=== PATIENT | male | born 1970 | race Caucasian/White ===

== ENCOUNTER 2017-11-12 11:41 | Emergency (ER) | payer BC, OTHER ==
[~2017-11-12] VITALS: Ht 175.3 cm; Wt 91.5 kg
[~2017-11-12 11:41] MED LIST: ACHD5005 PO; ASPI325T32 PO; ATEN25TA PO; CIPR-17 PO; NAPR-243 PO; OXYC-12 PO; TRM50T PO
[2017-11-12] MEDS ORDERED: TETRACAINE 0.5% OPHTH SOLN 4 ML BTL (SINGLE DOSE ONLY) OP ONE (12:15)
[2017-11-12 12:30] LABS: BASOPHILS % (AUTO) 1 % (0-10); EOSINOPHILS # (AUTO) 0.2 10^3/uL (0.0-0.3); EOSINOPHILS % (AUTO) 3 % (0-10); HEMATOCRIT 49 % (40-54); HEMOGLOBIN 17.4 G/DL (13.3-17.7); LYMPHOCYTES # (AUTO) 2.4 X 10^3 (1.0-4.0); LYMPHOCYTES % (AUTO) 33 % (12-44); MEAN CORPUSCULAR HEMOGLOBIN 31 PG (25-34); MEAN CORPUSCULAR HGB CONC 36 G/DL (32-36); MEAN CORPUSCULAR VOLUME 88 FL (80-99); MEAN PLATELET VOLUME 11.1 FL (7.4-10.4); MONOCYTES % (AUTO) 13 % (0-12); NEUTROPHILS # (AUTO) 3.7 X 10^3 (1.8-7.8); NEUTROPHILS % (AUTO) 51 % (42-75); PLATELET COUNT 268 10^3/uL (130-400); RED BLOOD COUNT 5.55 10^6/uL (4.35-5.85); RED CELL DISTRIBUTION WIDTH 13.2 % (10.0-14.5); WHITE BLOOD COUNT 7.4 10^3/uL (4.3-11.0)
[2017-11-12] MEDS ORDERED: NS 250 ML (IVPB) BAG IV ONE (12:30)
[2017-11-12] MEDS ORDERED: fentaNYL INJECTION 100 MCG/2 ML AMP IVP ONE (12:30)
[2017-11-12] MEDS ORDERED: IOHEXOL 350 MG/ML 100 ML (OMNIPAQUE 350) VIAL IV ONE (12:30)
[2017-11-12] MEDS ORDERED: CATHETER FLUSH 10 ML SYR IV PRN (12:30)
--- NOTE | 2017-11-12 12:46 | ED Headache ---
General Chief Complaint: Head/Cervical Problems Stated Complaint: HEALY--RT EYE SWELLING Nursing Triage Note: HEALY since Aug 27 when DX with scarcomia. tylenol keeps it managable Nursing Sepsis Screen: No Definite Risk History of Present Illness Date Seen by Provider: Nov 12, 2017 Time Seen by Provider: 12:00 Initial Comments Patient presents to the ER with complaints of right eye photophobia, blurred vision, headache, and right sided head swelling since September. The right eye pain only began today. Patient has been seen by primary care and was referred to dermatology for freckles around the eye and "freckle on the retina". He has not yet seen ophthalmology or optometry. Patient reports starting new medications in September for PTSD, patient reports taking Pristiq. Timing/Duration: constant Location: temporal Prior Headaches/Recent Trauma: chronic headaches Modifying Factors: improves with rest Associated Symptoms: denies symptoms Allergies and Home Medications Allergies Coded Allergies: Codeine (Unverified Allergy, Severe, 05/06/10) Home Medications Aspirin 325 Mg Tabec, 325 MG PO DAILY, (Reported) Hydrocodone Bit/Acetaminophen 1 Each Tablet, 1-2 EACH PO Q6H PRN for PAIN Prescribed by: EDWARD MARIE on 12/17/13 9784 Patient Home Medication List Home Medication List Reviewed: Yes Constitutional: other (headache) Eyes: Blurred Vision, Pain, Photophobia Ears, Nose, Mouth, Throat: no symptoms reported, see HPI Respiratory: no symptoms reported, see HPI Cardiovascular: no symptoms reported, see HPI Genitourinary: no symptoms reported, see HPI Musculoskeletal: no symptoms reported, see HPI Skin: no symptoms reported, see HPI Psychiatric/Neurological: Headache Past Gwzqexq-Wpdreo-Xaoqng Hx Patient Social History Alcohol Use: Denies Use Recreational Drug Use: No (SMOKES 1/2 PPD X18 YRS) Smoking Status: Current Everyday Smoker 2nd Hand Smoke Exposure: No Recent Foreign Travel: No Contact w/Someone Who Travel: No Recent Infectious Disease Expo: No Recent Hopitalizations: Yes Physical Abuse: No Sexual Abuse: No Mistreated: No Fear: No Immunizations Up To Date Tetanus Booster (TDap): Less than 5yrs Date of Influenza Vaccine: Jul 17, 2011 Surgeries History of Surgeries: Yes Surgeries: Gallbladder, Orthopedic, Tonsillectomy, Vasectomy Respiratory History of Respiratory Disorde: No Respiratory Disorders: Sleep Apnea Cardiovascular History of Cardiac Disorders: Yes Cardiac Disorders: Heart Attack Neurological History of Neurological Disord: No (scarcomia) Reproductive System Hx Reproductive Disorders: No Sexually Transmitted Disease: No Genitourinary History of Genitourinary Disor: No Gastrointestinal History of Gastrointestinal Di: No Musculoskeletal History of Musculoskeletal Dis: Yes (r knee/surg) Endocrine History of Endocrine Disorders: No HEENT History of HEENT Disorders: No Cancer History of Cancer: No Psychosocial History of Psychiatric Problem: No Suicide Risk Score: 0 Blood Transfusions History of Blood Disorders: No Physical Exam Vital Signs Vital Signs - First Documented 11/12/17 11:54 Temp 98.4 Pulse 83 Resp 18 B/P (MAP) 139/75 (96) Pulse Ox 94 Capillary Refill : Less Than 3 Seconds General Appearance: WD/WN, no apparent distress HEENT: PERRL/EOMI, normal ENT inspection, other (both eyes are without erythema , there is some ptosis of the right upper eyelid. Very minimal. No conjunctivitis or scleral injection. No hyphema. Intraocular pressure measured with Tiger-Pen and is 16 mmHg bilaterally.) Neck: non-tender, full range of motion Respiratory: chest non-tender, lungs clear Gastrointestinal: normal bowel sounds, non tender Extremities: normal range of motion, non-tender Psychiatric: alert, oriented x 3 Crainal Nerves: normal hearing, normal speech, PERRL Skin: normal color, warm/dry Progress/Results/Core Measures Results/Orders Lab Results Laboratory Tests Test 11/12/17 12:25 Range/Units White Blood Count 7.4 4.3-11.0 10^3/uL Red Blood Count 5.55 4.35-5.85 10^6/uL Hemoglobin 17.4 13.3-17.7 G/DL Hematocrit 49 40-54 % Mean Corpuscular Volume 88 80-99 FL Mean Corpuscular Hemoglobin 31 25-34 PG Mean Corpuscular Hemoglobin Concent 36 32-36 G/DL Red Cell Distribution Width 13.2 10.0-14.5 % Platelet Count 268 130-400 10^3/uL Mean Platelet Volume 11.1 H 7.4-10.4 FL Neutrophils (%) (Auto) 51 42-75 % Lymphocytes (%) (Auto) 33 12-44 % Monocytes (%) (Auto) 13 H 0-12 % Eosinophils (%) (Auto) 3 0-10 % Basophils (%) (Auto) 1 0-10 % Neutrophils # (Auto) 3.7 1.8-7.8 X 10^3 Lymphocytes # (Auto) 2.4 1.0-4.0 X 10^3 Monocytes # (Auto) 1.0 0.0-1.0 X 10^3 Eosinophils # (Auto) 0.2 0.0-0.3 10^3/uL Basophils # (Auto) 0.0 0.0-0.1 10^3/uL Erythrocyte Sedimentation Rate 1 0-15 MM/HR Sodium Level 140 135-145 MMOL/L Potassium Level 3.9 3.6-5.0 MMOL/L Chloride Level 106 98-107 MMOL/L Carbon Dioxide Level 28 21-32 MMOL/L Anion Gap 6 5-14 MMOL/L Blood Urea Nitrogen 12 7-18 MG/DL Creatinine 0.93 0.60-1.30 MG/DL Estimat Glomerular Filtration Rate > 60 BUN/Creatinine Ratio 13 Glucose Level 66 L 70-105 MG/DL Calcium Level 10.3 H 8.5-10.1 MG/DL Total Bilirubin 0.7 0.1-1.0 MG/DL Aspartate Amino Transf (AST/SGOT) 21 5-34 U/L Alanine Aminotransferase (ALT/SGPT) 29 0-55 U/L Alkaline Phosphatase 71 40-136 U/L Total Protein 7.7 6.4-8.2 GM/DL Albumin 4.8 H 3.2-4.5 GM/DL My Orders Orders - KIRA MUIR STAFFING EXECUTIVE Tetracaine 0.5% Ophth Erica Sdv (Tetracai (11/12/17 12:15) Ct Head W Wo (11/12/17 12:11) Cbc With Automated Diff (11/12/17 12:11) Comprehensive Metabolic Panel (11/12/17 12:11) Saline Lock/Iv-Start (11/12/17 12:11) Fentanyl Injection (Sublimaze Injection (11/12/17 12:30) Iohexol Injection (Omnipaque 350 Mg/Ml 1 (11/12/17 12:30) Sodium Chloride Flush (Catheter Flush Sy (11/12/17 12:30) Ns (Ivpb) (Sodium Chloride 0.9%) (11/12/17 12:30) Pharmacy Communication (Pharmacy Communi (11/12/17 12:28) Erythrocyte Sedimentation Rate (11/12/17 13:06) Medications Given in ED Current Medications Medications Dose Ordered Sig/Ty Route Start Time Stop Time Status Last Admin Dose Admin Fentanyl Citrate 50 mcg ONCE ONCE IVP 11/12/17 12:30 11/12/17 12:31 DC 11/12/17 12:29 50 MCG Iohexol 100 ml ONCE ONCE IV 11/12/17 12:30 11/12/17 12:31 DC 11/12/17 13:14 80 ML Sodium Chloride 10 ml NEEDED PRN IV 11/12/17 12:30 11/12/17 13:14 10 ML Sodium Chloride 250 ml ONCE ONCE IV 11/12/17 12:30 11/12/17 12:31 DC 11/12/17 13:14 80 ML Tetracaine HCl 1 ml ONCE ONCE OP 11/12/17 12:15 11/12/17 12:16 DC 11/12/17 12:25 1 ML Vital Signs/I&O Vital Sign - Last 12Hours 11/12/17 11:54 Temp 98.4 Pulse 83 Resp 18 B/P (MAP) 139/75 (96) Pulse Ox 94 Blood Pressure Mean: 96 Progress Note : Time: 12:45 Progress Note Intraocular pressure was tested with a Tigre-Pen, the results were 16 mmHg bilaterally. Departure Communication (Admissions) Progress Notes A CT scan of the head both with and without contrast was done. No evidence of mass. I will refer the patient to Dr. Rodriguez clinic for further workup of the right eye blurred vision and discomfort. His headaches started when he started the new medication Pristiq. This is listed as a common side effect of that medication. However his right eye does have some ptosis and photophobia which should not be associated with that. He states that his primary care doctor has scheduled him for an outpatient MRI of the brain and he should continue with this plan. I did make an appointment on the patient's behalf with Dr. Martell, Optometry Wednesday 11 AM Impression Impression: Primary Impression: Acute right eye pain Additional Impression: Headache Disposition: ADMITTED INPATIENT Condition: Stable (admission she comes in she is like this) Departure-Patient Inst. Decision time for Depature: 13:42 Referrals: HERMINIA BORJA MD (PCP/Family) Primary Care Physician YAZAN OLRENZO OD Patient Instructions: Headache, Adult (DC) Add. Discharge Instructions: 1. Return to ER for any concerns 2. Follow-up with your doctor to obtain the MRI of the brain as scheduled 3. Follow-up with optometry doctor Jasbir at the [facility] just across the [address] from [facility]. You're to see him Wednesday 11 AM. All discharge instructions reviewed with patient and/or family. Voiced understanding. Scripts Butalb/Acetaminophen/Caffeine (Qzrsuv-Vkubymqp-Eazs 50-300-40) 1 Each Capsule 1 EACH PO Q4H for Headache, #10 CAP Prov: KIRA MUIR APRN 11/12/17 Copy Copies To 1: YAZAN LORENZO OD Copies To 2: EDILMA MUNSON PETER J APRN Nov 12, 2017 12:46
[2017-11-12 12:50] LABS: ALANINE AMINOTRANSFERASE 29 U/L (0-55); ALBUMIN 4.8 GM/DL (3.2-4.5); ALKALINE PHOSPHATASE 71 U/L (40-136); BILIRUBIN,TOTAL 0.7 MG/DL (0.1-1.0); BUN/CREATININE RATIO 13; CALCIUM 10.3 MG/DL (8.5-10.1); CARBON DIOXIDE 28 MMOL/L (21-32); CHLORIDE 106 MMOL/L (98-107); CREATININE SERUM 0.93 MG/DL (0.60-1.30); GFR ESTIMATED > 60; GLUCOSE 66 MG/DL (70-105); POTASSIUM 3.9 MMOL/L (3.6-5.0); SODIUM 140 MMOL/L (135-145); TOTAL PROTEIN 7.7 GM/DL (6.4-8.2)
--- NOTE | 2017-11-12 13:22 | Diagnostic Imaging Report ---
PROCEDURE: CT head with and without contrast. TECHNIQUE: Multiple contiguous axial images were obtained through the brain before and after the administration of intravenous contrast. INDICATION: Headache since August, right eye sensitivity and blurred vision. COMPARISON: None. FINDINGS: The ventricles and cortical sulci appear age-appropriate. No acute intracranial hemorrhage is seen. There is no midline shift or mass effect. There is no CT evidence of acute territorial ischemia. Small foci of subcortical hypoattenuation may represent chronic microvascular disease. No associated enhancement is seen, and no other areas of abnormal enhancement are appreciated. The calvarium appears intact. The visualized paranasal sinuses are clear. IMPRESSION: 1. No acute intracranial hemorrhage. No CT evidence of acute territorial ischemia or focal enhancing mass. 2. Small focal areas of subcortical hypoattenuation, may represent mild chronic microvascular disease. Dictated by: Dictated on workstation # [id number]
[2017-11-12 14:00] VITALS: BP 136/71
[2017-11-12] MEDS ORDERED: BUTA1CAP41 PO (14:03)
--- OUTSIDE RECORDS SUMMARY | 2017-11-14 04:26 | XMS REPORT | Continuity of Care Document ---
Author Author [facility] Organization [facility] Address Unknown Phone Unavailable Allergies Active Description Code Type Severity Reaction Onset Reported/Identified Relationship to Patient Clinical Status Yes codeine Drug Allergy N/A N/A 04/26/2014 Medications There is no data. Problems Date Dx Coded Attending Type Code Diagnosis Diagnosed By 02/19/2014 EDILMA MUNSON DO V05.3 HEP B (ADULT) DX 02/19/2014 EDILMA MUNSON DO K V74.1 TB SCREENING 02/19/2014 EDILMA MUNSON DO K V05.3 HEP B (ADULT) DX 02/19/2014 NAN MUNSON DOA K V74.1 TB SCREENING 02/19/2014 EDILMA MUNSON DO K V05.3 HEP B (ADULT) DX 02/19/2014 NAN MUNSON DOA K V74.1 TB SCREENING 02/19/2014 NAN MUNSON DOA K V05.3 HEP B (ADULT) DX 02/19/2014 NAN MUNSON DOA K V74.1 TB SCREENING 04/26/2014 EDILMA MUNSON DO 599.72 MICROSCOPIC HEMATURIA 04/26/2014 EDILMA MUNSON DO K 786.09 snoring 04/26/2014 NAN MUNSON DOA K V70.5 visit for: pre-employment physical 04/26/2014 EDILMA MUNSON DO 599.72 MICROSCOPIC HEMATURIA 04/26/2014 EDILMA MUNSON DO K 786.09 snoring 04/26/2014 NAN MUNSON DOA K V70.5 visit for: pre-employment physical Procedures Code [place] [address] TB TEST INTRADERMAL 02/19/2014 20641 SLEEP STUDY (HOME) 04/27/2014 Results There is no data. Encounters ACCT No. Visit Date/Time Discharge Status Pt. Type Provider Facility Loc./Unit Complaint [id number] 12/27/2013 10:37:00 12/27/2013 23:59:59 CLS Outpatient [id number] 12/17/2013 16:39:00 12/17/2013 19:00:00 DIS Emergency [id number] 09/05/2014 14:14:00 09/05/2014 23:59:59 CLS Outpatient EDILMA MUNSON DO [id number] 04/26/2014 14:26:00 04/26/2014 23:59:59 CLS Outpatient EDILMA MUNSON DO [id number] 03/23/2014 08:02:00 03/23/2014 23:59:[address] [facility] Outpatient EDILMA MUNSON DO [id number] 02/19/2014 08:26:00 02/19/2014 23:59:[address] [facility] Outpatient EDILMA MUNSON DO
== END 2017-11-12 14:05 | disposition other institution (70) ==
LOC: EDUNIT# 11:41 → ER 11:44
DX: H57.11 Ocular pain, right eye (principal); R51 Headache; F03.90 Unspecified dementia, unspecified severity, without behavioral disturbance, psychotic disturbance, mood disturbance, and anxiety; G47.30 Sleep apnea, unspecified; I25.2 Old myocardial infarction; F17.210 Nicotine dependence, cigarettes, uncomplicated; Z90.89 Acquired absence of other organs; Z98.52 Vasectomy status; Z88.5 Allergy status to narcotic agent; Z79.82 Long term (current) use of aspirin
CPT/HCPCS: 36415; 70470; 80053; 85025; 85652

== ENCOUNTER 2019-07-24 05:39 | Outpatient (CLI) | payer BC ==
[~2019-07-24] VITALS: Ht 175 cm; Wt 95.9 kg
[~2019-07-24 05:39] MED LIST changes: +BUTA1CAP41 PO
[2019-07-24] MEDS ORDERED: BREX1TAB PO (11:46)
[2019-07-24] MEDS ORDERED: PARO30TA74 PO (11:46)
== END 2019-07-24 12:20 | disposition home or self-care (01) ==
LOC: PREOP 05:39
PROVIDERS: ATTEND Surgery
DX: Z01.818 Encounter for other preprocedural examination (principal)

== ENCOUNTER → 2019-09-26 | Outpatient (CLI) | payer BC, OTHER ==
[~2019-09-26] VITALS: Ht 175 cm; Wt 102.0 kg
[~2019-09-26] MED LIST changes: +BREX1TAB PO; +CATHETER FLUSH 10 ML SYR IV PRN; +PARO30TA74 PO; +REGADENOSON 0.4 MG/5 ML SYR (LEXISCAN) IV ONE
--- NOTE | 2019-09-27 11:02 | STRESS TEST ---
DATE OF SERVICE: 09/26/2019 RESTING AND POST REGADENOSON TECHNETIUM-99M TETROFOSMIN SPECT CT IMAGING ORDERING PHYSICIAN: Dr. Middleton. OTHER PHYSICIAN: Saurav Cain APRN CLINICAL DIAGNOSES: Chest discomfort, shortness of breath. Baseline images were carried out after injection of 10.2 mCi of technetium-99m Tetrofosmin. This was followed by 0.4 mg regadenoson and 30.4 mCi of technetium-99m Tetrofosmin for stress imaging. The electrocardiogram showed sinus rhythm at baseline and did not change significantly. He tolerated the procedure well. Review of images at rest and following stress is suggestive of a small amount of inferior ischemia. Gated images show normal global left ventricular systolic function with normal regional wall motion. Left ventricular ejection fraction is calculated to be 61%. Left ventricular end diastolic volume is 83 mL. TID is absent (1.01). CONCLUSIONS: 1. This study is suggestive of a small amount of inferior ischemia. 2. Normal regional wall motion. 3. Normal global left ventricular systolic function with a calculated ejection fraction of 61%. Job ID: [id number] DocumentID: [id number] Dictated Date: 09/27/2019 08:44:58 [place] Date: 09/27/2019 11:02:14 Dictated By: MARLON MIDDLETON MD, MA, FACP, FACC, MTDD
== END ==
LOC: CARD 09:44
PROVIDERS: ATTEND Internal Medicine Cardiovascular Disease
DX: R07.9 Chest pain, unspecified (principal); R06.02 Shortness of breath; E78.5 Hyperlipidemia, unspecified
CPT/HCPCS: 78452; 93017

== ENCOUNTER 2019-10-13 06:42 | Day surgery (SDC) | payer BC ==
[~2019-10-13] VITALS: Ht 175 cm; Wt 101.0 kg
[2019-10-13] VITALS (9 sets, daily range): BP systolic 99–120; BP diastolic 53–72
[~2019-10-13 06:42] MED LIST changes: -CATHETER FLUSH 10 ML SYR IV PRN; -REGADENOSON 0.4 MG/5 ML SYR (LEXISCAN) IV ONE
[2019-10-13] MEDS ORDERED: NS IV 1000 ML 1,000 ML IV SCH ×2 (06:45→09:06)
[2019-10-13] MEDS ORDERED: LIDOCAINE 1% INJ 20 ML 20 ML VIAL ONE ×2 (06:51→08:40)
[2019-10-13] MEDS ORDERED: HEParin (CATH LAB) 2,000 ML IV ONE (06:51)
[2019-10-13] MEDS ORDERED: NS IV 1000 ML 1,000 ML ONE (06:51)
[2019-10-13 07:16] LABS: HEMOGLOBIN 16.5 G/DL (13.3-17.7); MEAN PLATELET VOLUME 11.2 FL (7.4-10.4); RED CELL DISTRIBUTION WIDTH 13.2 % (10.0-14.5); WHITE BLOOD COUNT 6.4 10^3/uL (4.3-11.0)
[2019-10-13 07:33] LABS: PROTHROMBIN TIME PATIENT 13.3 SEC (12.2-14.7)
[2019-10-13 07:41] LABS: ALANINE AMINOTRANSFERASE 30 U/L (0-55); ALBUMIN 4.5 GM/DL (3.2-4.5); ALKALINE PHOSPHATASE 56 U/L (40-136); BILIRUBIN,TOTAL 0.7 MG/DL (0.1-1.0); BUN/CREATININE RATIO 11; CALCIUM 9.7 MG/DL (8.5-10.1); CARBON DIOXIDE 21 MMOL/L (21-32); CHLORIDE 109 MMOL/L (98-107); CHOLESTEROL 151 MG/DL (< 200); CREATININE SERUM 0.98 MG/DL (0.60-1.30); GFR ESTIMATED > 60; GLUCOSE 110 MG/DL (70-105); HDL CHOLESTEROL 33 MG/DL (40-60); POTASSIUM 4.3 MMOL/L (3.6-5.0); SODIUM 140 MMOL/L (135-145); TOTAL PROTEIN 7.4 GM/DL (6.4-8.2); TRIGLYCERIDES 150 MG/DL (<150); VLDL CHOLESTEROL 30 MG/DL (5-40)
[2019-10-13] MEDS ORDERED: IBUP-2473 PO (07:42)
[2019-10-13] MEDS ORDERED: MTP25TSR PO (07:42)
[2019-10-13] MEDS ORDERED: ACET-2267 PO (07:42)
[2019-10-13] MEDS ORDERED: ATOR20TA66 PO (07:42)
[2019-10-13] MEDS ORDERED: TRAZ-190 PO (07:42)
[2019-10-13] MEDS ORDERED: HYDR50CA3 PO (07:42)
--- NOTE | 2019-10-13 07:44 | NUR ---
SPOKE WITH THE PT (HE DID NOT HAVE MEDS) WENT THRU THE MEDICATION LIST PROVIDED BY THE OFFICE THAT WAS ATTACHED TO THE TRIMMER LOADER CHART, WELL CALL [facility] TO COMPLETE THE MED REC. THE FOLLOWING ARE FILL DATES FROM [facility]: 06-06-2019 TRAZODONE 100MG #30/PRN 06-30-2019 HYDROXYZINE 50MG CAPS #60/PRN 09-07-2019 ATORVASTATIN 20MH #30/30DS 09-23-2019 PAROXETINE 30MG #30/30DS 09-23-2019 REXULTI 1MG #90/90DS (RECEIVED FROM PALS PROGRAM) 10-05-2019 METOPROLOL SUCC 25MG #30/30DS OTC MEDS: TYLENOL IBUPROFEN ON THE MEDICATION LIST FROM THE OFFICE ASPIRIN 81MG IS LISTED, HOWEVER I LEFT IT OFF THE MED REC BC THE PT SAYS HE HASNT TAKEN IT IN A COUPLE MONTHS.
[2019-10-13] MEDS ORDERED: MIDAZOLAM 5 MG/5 ML (VERSED) VIAL ONE (08:26)
[2019-10-13] MEDS ORDERED: fentaNYL INJECTION 100 MCG/2 ML AMP ONE (08:26)
--- NOTE | 2019-10-13 09:06 | Cardiac Procedure Note-CS/ASA ---
Pre-Procedure Note Pre-Op Procedure Note H&P Reviewed The H&P was reviewed, patient examined and no changes noted. Date H&P Reviewed: Oct 13, 2019 Time H&P Reviewed: 08:35 Conscious Sedation Pre-Proced Time 08:35 ASA Score 3 For ASA 3 and 4: Consider anesthesia and medical clearance. Also, for patients with a history of failed moderate sedation consider anesthesia. Airway Lungs Heart ASA score ASA 1: a normal healthy patient ASA 2: a patient with a mild systemic disease (mid diabetes, controlled hypertension, obesity ASA 3: a patient with a severe systemic disease that limits activity (angina, COPD, prior Myocardial infarction) ASA 4: a patient with an incapacitating disease that is a constant threat to life (CHF, renal failure) ASA 5: a moribund patient not expected to survive 24 hrs. (ruptured aneurysm) ASA 6: a declared brain- patient whose organs are being harvested. For emergent operations, add the letter E after the classification Mallampati Classification Grade 2 Sedation Plan Analgesia, Amnesia, Plan communicated to team members, Discussed options with patient/fam, Discussed risks with patient/fam The patient is an appropriate candidate to undergo the planned procedure, sedation, and anesthesia. The patient immediately re-assessed prior to indication. MARLON CRESPO MD FACP FAC CCDS Oct 13, 2019 09:06
--- NOTE | 2019-10-13 09:10 | Discharge Inst-Post CATH ---
Discharge Inst-CATH/EP Post Cardiac Cath/EP D/C Inst Follow Up/Plan F/u with Dr Middleton in 2 weeks ACTIVITY * Go Home directly and rest. * Limit activity of the leg (or wrist if it was used) for 7 days including aerobics, swimming, jogging, bicycling, etc. * Restrict stair-climbing for 7 days if possible, if not, climb up with your n on-cath leg, then bring together on the same step. * Avoid lifting, pushing, pulling or excessive movement of the affected ex tremity for 7 days. * Customary sexual activity may be resumed after 2 days-use caution not to use a position that strains or causes pain to the affected extremity. * No driving for 24 hours. * NO SMOKING. * Avoid straining for bowel movements for 7 days. * Gentle walking on level ground is allowed. * Returning to work will depend on the type of procedure and the results. Your doctor will discuss this with you. CALL YOUR DOCTOR FOR ANY OF THE FOLLOWING: *If bleeding from the puncture site occurs- Apply gentle pressure to site with clean cloth and call your doctor or EMS. * If a knot or lump forms under the skin, increases in size, or causes pain. * If bruising appears to be worsening or moving further down your leg instead of disappearing. * Temperature above 101 F. CARE OF YOUR GROIN INCISION; * Bruising or purple discoloration of the skin near the puncture site is common. * You may shower only, no bathtub bathing for 5 days. Be careful to avoid slipping as your leg may feel stiff. * If a closure device was used on your femoral artery, please see the attached guide regarding care of the device and your leg. * Leave dressing on FOR 24 hours. CARE OF YOUR WRIST INCISION; * Bruising or purple discoloration of the skin near the puncture site is common. * You may shower. * DO NOT submerge wrist. * Leave dressing on FOR 24 hours. MARLON MIDDLETON MD [facility] CCDS Oct 13, 2019 09:10
--- NOTE | 2019-10-13 09:10 | Discharge Inst-Cardiology ---
Discharge Inst-Cardiac Discharge Medications Continued Medications: Acetaminophen (Tylenol Extra Strength) 500 Mg Tablet 1000 MG PO Q8H PRN for PAIN-MILD (1-4), TAB Atorvastatin Calcium (Atorvastatin Calcium) 20 Mg Tablet 20 MG PO DAILY, TAB Brexpiprazole (Rexulti) 1 Mg Tablet 1 MG PO DAILY, TAB Hydroxyzine Pamoate (Hydroxyzine Pamoate) 50 Mg Capsule 50 MG PO BID PRN for ANXIETY, CAP Ibuprofen (Ibuprofen) 200 Mg Tablet 400 MG PO Q6H PRN for PAIN-MILD (1-4), TAB Metoprolol Succinate (Metoprolol Succinate) 25 Mg Tab.er.24h 25 MG PO DAILY, TAB Paroxetine HCl (Paxil) 30 Mg Tablet 30 MG PO DAILY, TAB Trazodone HCl (Trazodone HCl) 100 Mg Tablet 100 MG PO DAILY PRN for INSOMNIA, TAB MARLON CRESPO MD FACP FAC CCDS Oct 13, 2019 09:10
[2019-10-13] MEDS ORDERED: PATIENT MAY USE OWN MEDS, ALL PO SCH (09:15)
--- NOTE | 2019-10-13 10:17 | CARDIAC CATHETERIZATION ---
DATE OF SERVICE: 10/13/2019 CARDIAC CATHETERIZATION REPORT The patient is a 49-year-old man, who has symptoms of chest discomfort and has multiple coronary risk factors. The recent myocardial perfusion imaging study was indicative of inferior ischemia. Cardiac catheterization was carried out after having obtained an informed consent. PROCEDURE: He was brought to the cardiac catheterization laboratory in a fasting state. Right groin was prepared and draped in the usual sterile fashion. Lidocaine 1% was used for local anesthesia. Modified Seldinger technique was used to advance a 5-Botswanan sheath in the right femoral artery, 5-B[place]wanan JL3.5 catheter was used for left coronary angiography, 5-[place]wanan JR4 catheter was used for right coronary angiography, 5-[place]wanan pigtail catheter was used for left heart catheterization and left ventricular angiography. The pigtail catheter was pulled back and removed. Angiography of the right femoral artery was carried out through the sheath. Mynx was used to achieve hemostasis. He tolerated the procedure well. HEMODYNAMICS: Left ventricular end-diastolic pressure following coronary angiography was 19 mmHg. There is no significant pressure gradient on pullback across the aortic valve. Ascending aortic pressure was 108/67 with a mean of 86 mmHg. CORONARY ANGIOGRAPHY: Left main coronary artery is free of significant disease. Left anterior descending artery is free of significant disease. Left circumflex artery is free of significant disease. Right coronary artery is free of significant disease. Right coronary artery is dominant. LEFT VENTRICULAR ANGIOGRAPHY: Left ventricular angiography was carried out in the right anterior oblique projection. Global left ventricular systolic function, normal regional wall motion abnormality was seen. Left ventricular ejection fraction is approximately 55% to 60%. No regional wall motion abnormality was seen. CONCLUSIONS: 1. No angiographically significant coronary artery disease. 2. Normal global left ventricular systolic function with an ejection fraction of 55% to 60%. 3. Elevated left ventricular end-diastolic pressure. DISCUSSION AND RECOMMENDATIONS: Based on the results of the study, it appears appropriate to continue a conservative approach. Risk factor modification has been reviewed. Outpatient followup is advised. We have advised him to continue to refrain from smoking cigarettes. Job ID: [id number] DocumentID: [id number] Dictated Date: 10/13/2019 09:00:13 Family Practitioner Date: 10/13/2019 10:17:30 Dictated By: MARLON CRESPO MD, MA, FACP, FACC,
== END 2019-10-13 13:00 | disposition home or self-care (01) ==
LOC: CATH 06:42 → SDC 09:17 → CATH 13:00
PROVIDERS: ATTEND Internal Medicine Cardiovascular Disease
DX: R07.9 Chest pain, unspecified (principal); I10 Essential (primary) hypertension; E78.5 Hyperlipidemia, unspecified; F32.9 Major depressive disorder, single episode, unspecified; F43.10 Post-traumatic stress disorder, unspecified; Z88.5 Allergy status to narcotic agent; Z99.89 Dependence on other enabling machines and devices; Z79.899 Other long term (current) drug therapy; Z87.891 Personal history of nicotine dependence; Z83.3 Family history of diabetes mellitus
CPT/HCPCS: 36415; 80053; 80061; 85027; 85610; 85730; 87081; 93458

== ENCOUNTER 2019-10-24 04:37 | Emergency (ER) | payer BC ==
[~2019-10-24] VITALS: Ht 175 cm; Wt 102.4 kg
[~2019-10-24 04:37] MED LIST changes: +ACET-2267 PO; +ATOR20TA66 PO; +HYDR50CA3 PO; +IBUP-2473 PO; +MTP25TSR PO; +TRAZ-190 PO
[2019-10-24] MEDS ORDERED: ASPIRIN 81 MG CHEW (CHILDREN'S ASA) ONE (04:58)
[2019-10-24] MEDS ORDERED: LACTATED RINGERS 1,000 ML IV STA (05:02)
[2019-10-24 05:05] LABS: BASOPHILS % (AUTO) 1 % (0-10); EOSINOPHILS # (AUTO) 0.4 10^3/uL (0.0-0.3); EOSINOPHILS % (AUTO) 5 % (0-10); HEMATOCRIT 46 % (40-54); HEMOGLOBIN 16.4 G/DL (13.3-17.7); LYMPHOCYTES # (AUTO) 1.3 X 10^3 (1.0-4.0); LYMPHOCYTES % (AUTO) 18 % (12-44); MEAN CORPUSCULAR HEMOGLOBIN 32 PG (25-34); MEAN CORPUSCULAR HGB CONC 35 G/DL (32-36); MEAN CORPUSCULAR VOLUME 89 FL (80-99); MEAN PLATELET VOLUME 10.4 FL (7.4-10.4); MONOCYTES # (AUTO) 0.6 X 10^3 (0.0-1.0); MONOCYTES % (AUTO) 8 % (0-12); NEUTROPHILS # (AUTO) 4.9 X 10^3 (1.8-7.8); NEUTROPHILS % (AUTO) 68 % (42-75); PLATELET COUNT 232 10^3/uL (130-400); RED CELL DISTRIBUTION WIDTH 13.3 % (10.0-14.5); WHITE BLOOD COUNT 7.2 10^3/uL (4.3-11.0)
--- NOTE | 2019-10-24 05:10 | ED Chest Pain ---
General Chief Complaint: Chest Pain Stated Complaint: CP,DIARRHEA,VOMITING,COLD SWEATS,HEALY Nursing Triage Note: AMBULATORY TO ED ROOM 7 WITH C/O SHARP SUBSTERNAL CP THAT STARTED 45MIN CRUISE COORDINATOR WHILE STANDING AT WORK. RECENT CARDIAC CATH APPROX 1 WEEK AGO THAT REQUIRED NO INTERVENTIONS. C/O SOME NAUSEA AND HAD THREE EPISODES OF DIARRHEA CRUISE COORDINATOR. DENIES ABD PAIN. Nursing Sepsis Screen: No Definite Risk Source: patient Exam Limitations: no limitations (NICOLE MONTAÑO MEDICAL STUDENT) History of Present Illness Date Seen by Provider: Oct 24, 2019 Time Seen by Provider: 04:50 Initial Comments Pt is a 49 yo M who ambulates to the ED for sharp, substernal CP that onset about one hour ago (0400) while standing at work. He rates the pain as (4/10) constant, non-changing, non-radiating. Simultaneously experienced nausea and one episode of vomiting, as well as three episodes of watery diarrhea. He thought it could just be a GI bug, but since he was also experiencing CP he decided to come to the ED. He had an outpatient cardiac workup on 10/13/19 which included a nuclear stress test and cardiac catheterization, which were both negative. No history of NV. He was taken off of metoprolol and aspirin at that time. Has a history of hyperlipidemia for which he takes atorvastatin. He has a 3 pack-year smoking history; states that he quit 2 months ago. However, he endorses heavy second hand smoke exposure at work. Timing/Duration: 1 hour Severity/Quality: moderate, sharp Location: substernal Radiation: no radiation Activities at Onset: none Prior CP/Workup: cardiac cath, stress test Modifying Factors: worse with breathing, worse with coughing, worse with lying down Associated Symptoms: No abdominal pain; dizziness, headache, nausea/vomiting; No shortness of breath (NICOLE MONTAÑO MEDICAL STUDENT) Timing/Duration: 1 hour, constant Severity/Quality: moderate, sharp Location: substernal, central Radiation: no radiation Prior CP/Workup: cardiac cath, stress test ASA po CRUISE COORDINATOR: No NTG SL CRUISE COORDINATOR: No (EDWARD MARIE MD) Allergies and Home Medications Allergies Coded Allergies: codeine (Verified Allergy, Severe, ANAPHYLAXIS, 07/31/19) Home Medications Acetaminophen 500 Mg Tablet, 1,000 MG PO Q8H PRN for PAIN-MILD (1-4), (Reported) Atorvastatin Calcium 20 Mg Tablet, 20 MG PO DAILY, (Reported) Brexpiprazole 1 Mg Tablet, 1 MG PO DAILY, (Reported) Hydroxyzine Pamoate 50 Mg Capsule, 50 MG PO BID PRN for ANXIETY, (Reported) Ibuprofen 200 Mg Tablet, 400 MG PO Q6H PRN for PAIN-MILD (1-4), (Reported) Metoprolol Succinate 25 Mg Tab.er.24h, 25 MG PO DAILY, (Reported) Paroxetine HCl 30 Mg Tablet, 30 MG PO DAILY, (Reported) Trazodone HCl 100 Mg Tablet, 100 MG PO DAILY PRN for INSOMNIA, (Reported) Patient Home Medication List Home Medication List Reviewed: Yes (NICOLE MONTAÑO MEDICAL STUDENT) Home Medication List Reviewed: Yes (EDWARD MARIE MD) Review of Systems Review of Systems Constitutional: chills; No diaphoresis; dizziness; No fever, No weakness EENTM: No Nose Congestion Respiratory: Denies Cough, Denies Shortness of Air Cardiovascular: Chest Pain; Denies Edema Gastrointestinal: Denies Abdominal Pain; Diarrhea, Nausea, Vomiting Genitourinary: No Symptoms Reported Musculoskeletal: no symptoms reported Skin: no symptoms reported Psychiatric/Neurological: No Symptoms Reported Endocrine: No Symptoms Reported Hematologic/Lymphatic: No Symptoms Reported (NICOLE MONTAÑO STUDENT) Respiratory: Denies Cough, Denies Shortness of Air Cardiovascular: Chest Pain; Denies Edema Gastrointestinal: Diarrhea, Nausea, Vomiting (EDWARD MARIE MD) All Other Systems Reviewed Negative Unless Noted: Yes (EDWARD MARIE MD) Past Trxmovf-Usgoej-Goeqsd Hx Past Med/Social Hx: Reviewed Nursing Past Med/Soc Hx (NICOLE MONTAÑO STUDENT) Past Med/Social Hx: Reviewed Nursing Past Med/Soc Hx (EDWARD MARIE MD) Patient Social History Alcohol Use: Denies Use Number of Drinks Today: AA Alcohol Beverage of Choice: Beer Recreational Drug Use: No Smoking Status: Former Smoker (SMOKES 1/2 PPD X3 YRS) Type Used: Cigarettes Former Smoker, Quit: Sep 07, 2019 2nd Hand Smoke Exposure: Yes Recent Foreign Travel: No Contact w/Someone Who Travel: No Recent Infectious Disease Expo: No Recent Hopitalizations: Yes Physical Abuse: No Sexual Abuse: No Mistreated: No Fear: No (NICOLE MONTAÑO MEDICAL STUDENT) Immunizations Up To Date Tetanus Booster (TDap): Less than 5yrs PED Vaccines UTD: Yes Date of Pneumonia Vaccine: Jun 12, 2019 Date of Influenza Vaccine: Jun 12, 2019 (NICOLE MONTAÑO MEDICAL STUDENT) Seasonal Allergies Seasonal Allergies: Yes (MILD) (NICOLE MONTAÑO MEDICAL STUDENT) Past Medical History Surgeries: Yes (R KNEE X2, COLONSCOPY, HEART CATH) Gallbladder, Orthopedic, Tonsillectomy, Vasectomy Respiratory: Yes Sleep Apnea Currently Using CPAP: Yes Cardiac: Yes High Cholesterol Neurological: No Reproductive Disorders: No Sexually Transmitted Disease: No HIV/AIDS: No Genitourinary: No Gastrointestinal: No Musculoskeletal: Yes Arthritis Endocrine: No HEENT: No (GLASSES) Loss of Vision: Denies Hearing Impairment: Denies Cancer: No Psychosocial: Yes Anxiety, PTSD, Depression Integumentary: No Blood Disorders: No Adverse Reaction/Blood Tranf: No (N/A) (NICOLE MONTAÑO MEDICAL STUDENT) Family Medical History Reviewed Nursing Family Hx (EDWARD MARIE MD) Physical Exam Vital Signs Vital Signs - First Documented 10/24/19 04:44 Temp 37.1 Pulse 98 Resp 20 B/P (MAP) 131/88 (102) O2 Delivery Room Air (EDWARD MARIE MD) Vital Signs Capillary Refill : Less Than 3 Seconds (NICOLE MONTAÑO MEDICAL STUDENT) Height, Weight, BMI Height: 5'9" Weight: 201lbs. 12.8oz. [id number]; 33.00 BMI Method:Stated General Appearance: No Apparent Distress, WD/WN HEENT: PERRL/EOMI, Pharynx Normal Neck: Full Range of Motion, Normal Inspection, Non Tender, Supple Respiratory: Chest Non Tender, Lungs Clear, Normal Breath Sounds, No Respir atory Distress Cardiovascular: Regular Rate, Rhythm, No Edema, No Gallop, No Murmur, Normal Peripheral Pulses Gastrointestinal: Non Tender, Soft, Abnormal Bowel Sounds (hyperactive, tympanic) Extremity: Normal Capillary Refill, Non Tender, No Calf Tenderness Neurologic/Psychiatric: Alert, Oriented x3 Skin: Normal Color, Warm/Dry Lymphatic: No Adenopathy (NICOLE MONTAÑO MEDICAL STUDENT) General Appearance: No Apparent Distress HEENT: PERRL/EOMI, Pharynx Normal Neck: Non Tender, Supple Respiratory: Lungs Clear, Normal Breath Sounds Cardiovascular: Regular Rate, Rhythm, No Murmur Gastrointestinal: Non Tender, Soft Neurologic/Psychiatric: Alert, Oriented x3 Skin: Normal Color, Warm/Dry (EDWARD MARIE MD) Progress/Results/Core Measures Results/Orders Lab Results Laboratory Tests Test 10/24/19 04:55 Range/Units White Blood Count 7.2 4.3-11.0 10^3/uL Red Blood Count 5.21 4.35-5.85 10^6/uL Hemoglobin 16.4 13.3-17.7 G/DL Hematocrit 46 40-54 % Mean Corpuscular Volume 89 80-99 FL Mean Corpuscular Hemoglobin 32 25-34 PG Mean Corpuscular Hemoglobin Concent 35 32-36 G/DL Red Cell Distribution Width 13.3 10.0-14.5 % Platelet Count 232 130-400 10^3/uL Mean Platelet Volume 10.4 7.4-10.4 FL Neutrophils (%) (Auto) 68 42-75 % Lymphocytes (%) (Auto) 18 12-44 % Monocytes (%) (Auto) 8 0-12 % Eosinophils (%) (Auto) 5 0-10 % Basophils (%) (Auto) 1 0-10 % Neutrophils # (Auto) 4.9 1.8-7.8 X 10^3 Lymphocytes # (Auto) 1.3 1.0-4.0 X 10^3 Monocytes # (Auto) 0.6 0.0-1.0 X 10^3 Eosinophils # (Auto) 0.4 H 0.0-0.3 10^3/uL Basophils # (Auto) 0.0 0.0-0.1 10^3/uL Prothrombin Time 14.1 12.2-14.7 SEC INR Comment 1.1 0.8-1.4 Activated Partial Thromboplast Time 29 24-35 SEC Sodium Level 140 135-145 MMOL/L Potassium Level 4.1 3.6-5.0 MMOL/L Chloride Level 105 98-107 MMOL/L Carbon Dioxide Level 24 21-32 MMOL/L Anion Gap 11 5-14 MMOL/L Blood Urea Nitrogen 16 7-18 MG/DL Creatinine 1.06 0.60-1.30 MG/DL Estimat Glomerular Filtration Rate > 60 BUN/Creatinine Ratio 15 Glucose Level 139 H 70-105 MG/DL Calcium Level 9.6 8.5-10.1 MG/DL Corrected Calcium 9.2 8.5-10.1 MG/DL Magnesium Level 2.2 1.6-2.4 MG/DL Total Bilirubin 0.8 0.1-1.0 MG/DL Aspartate Amino Transf (AST/SGOT) 19 5-34 U/L Alanine Aminotransferase (ALT/SGPT) 25 0-55 U/L Alkaline Phosphatase 59 40-136 U/L Myoglobin 68.5 10.0-92.0 NG/ML Troponin I < 0.028 <0.028 NG/ML Total Protein 7.2 6.4-8.2 GM/DL Albumin 4.5 3.2-4.5 GM/DL (EDWARD MARIE MD) Micro Results Microbiology 10/24/19 Influenza Types A,B Antigen (DINA) - Final, Complete (EDWARD MARIE MD) My Orders Orders - EDWARD MARIE MD Cbc With Automated Diff (10/24/19 04:46) Magnesium (10/24/19 04:46) Chest 1 View, Ap/Pa Only (10/24/19 04:46) Ekg Tracing (10/24/19 04:46) Comprehensive Metabolic Panel (10/24/19 04:46) Myoglobin Serum (10/24/19 04:46) Protime With Inr (10/24/19 04:46) Partial Thromboplastin Time (10/24/19 04:46) O2 (10/24/19 04:46) Monitor-Rhythm Ecg Trace Only (10/24/19 04:46) Lipid Panel (10/25/19 06:00) Ed Iv/Invasive Line Start (10/24/19 04:46) Troponin I (10/24/19 04:46) Lidocaine 2% Viscous 15 Ml (Xylocaine Vi (10/24/19 05:15) Antacid Suspension (Mylanta Suspension (10/24/19 05:15) Lactated Ringers (Lr 1000 Ml Iv Solution (10/24/19 05:02) Influenza A And B Antigens (10/24/19 05:02) Aspirin Chewable Tablet (Baby Aspirin Ch (10/24/19 04:58) (EDWARD MARIE MD) Medications Given in ED Current Medications Medications Dose Ordered Sig/Ty Route Start Time Stop Time Status Last Admin Dose Admin Al Hydrox/Mg Hydrox/Simethicone 30 ml ONCE ONCE PO 10/24/19 05:15 10/24/19 05:16 DC 10/24/19 05:09 30 ML Aspirin 81 mg STK-MED ONCE .ROUTE 10/24/19 04:58 10/24/19 05:03 DC 10/24/19 05:09 324 MG Lidocaine HCl 15 ml ONCE ONCE PO 10/24/19 05:15 10/24/19 05:16 DC 10/24/19 05:09 15 ML (EDWARD MARIE MD) Vital Signs/I&O 10/24/19 10/24/19 04:44 04:44 Temp 37.1 Pulse 98 Resp 20 B/P (MAP) 131/88 (102) O2 Delivery Room Air (EDWARD MARIE MD) Blood Pressure Mean: 102 Progress Progress Note : Progress Note I have seen and evaluated the patient and agree with above except as indicated. I have directed the plan of care. Patient is here with central substernal chest discomfort that started about an hour ago. Does have history of recent heart catheter last week that was negative after stress test was done. Did have one episode of vomiting and several episodes of diarrhea. States that he didn't have the chest discomfort, he would not have come. He did have to leave work. Evaluation as above. Plan, chest pain workup with GI cocktail, aspirin and LR 1 L bolus. Monitor patient. 0549: No acute findings and patient is overall feeling better. He is low risk for cardiac etiology due to recent negative heart catheter and negative troponin currently. He believes that he probably has just a viral vomiting diarrhea illness for which I agree. He has ondansetron at home. Discharged home with return precautions. Patient verbalize understanding instructions and agreement with plan. (EDWARD MARIE MD) Initial ECG Impression Date: Oct 24, 2019 Initial ECG Impression Time: 04:49 Initial ECG Rate: 96 Initial ECG Rhythm: Normal Sinus Initial ECG Comparisson: Unchanged Comment Sinus rhythm with first degree AV block. Normal axis. No evidence of ST elevation NV. Socially unchanged from previous 12/09/11. Interpreted by me. (EDWARD MARIE MD) Diagnostic Imaging Diagonstic Imaging: Xray Plain Films/CT/US/NM/MRI: chest Comments NAME: JASE [facility] REC#: [id number] PT STATUS: REG ER : 1970 PHYSICIAN: EDWARD MARIE MD ADMIT DATE: 10/24/19/ER Draft Date of Exam:10/24/19 CHEST 1 VIEW, AP/PA ONLY CLINICAL INDICATION: Patient with chest pain. EXAM: Portable chest x-ray upright view. Comparisons: Portable chest x-ray dated 05/06/2010. FINDINGS: Lungs/pleura: Lungs are clear. There is no pneumothorax. There is no pleural effusion. Mediastinum: Unremarkable. Pulmonary vasculature: Unremarkable. Heart: Unremarkable. Bones/extrathoracic soft tissue: Unremarkable. IMPRESSION: There is no radiographic evidence of acute cardiopulmonary process. Dictated on workstation # [id number] Dict: 10/24/19 0542 Trans: 10/24/19 0546 BERENICE [id number] Interpreted by: CYNTHIA FLORES MD Electronically signed by: (EDWARD MARIE MD) Departure Impression Primary Impression: Chest pain Qualified Codes: R07.9 - Chest pain, unspecified Additional Impression: Vomiting and diarrhea Disposition: HOME, SELF-CARE Condition: Improved Departure-Patient Inst. Decision time for Depature: 05:50 (EDWARD MARIE MD) Referrals: HERMINIA BORJA MD (PCP) Primary Care Physician RADHA HOWARD (Family) Primary Care Physician Patient Instructions: Chest Pain (DC), Nausea and Vomiting, Adult (DC), Diarrhea in Adolescents and Adults Add. Discharge Instructions: All discharge instructions reviewed with patient and/or family. Voiced understanding. Clear Liquid diet for the next 12-24 hours and then advance as tolerated. Drink plenty of fluids but taken small sips frequently. Follow-up with your DrNidhi in a few days for recheck. Return for worse pain, fever, vomiting, weakness, breathing problems or other concerns as needed. Work/School Note: Work Release Form Date Seen in the Emergency Department: Oct 24, 2019 Return to Work: Oct 25, 2019 Restrictions: Return-No Vomiting(24hrs) NICOLE MONTAÑO MEDICAL STUDENT Oct 24, 2019 05:10 EDWARD MARIE MD Oct 24, 2019 05:39
[2019-10-24] MEDS ORDERED: LIDOCAINE 2% VISCOUS 15 ML UDC PO ONE (05:15)
[2019-10-24] MEDS ORDERED: ANTACID SUSP 30 ML UDC (MYLANTA) PO ONE (05:15)
[2019-10-24 05:16] LABS: INR 1.1 (0.8-1.4); PROTHROMBIN TIME PATIENT 14.1 SEC (12.2-14.7)
[2019-10-24 05:27] LABS: ALANINE AMINOTRANSFERASE 25 U/L (0-55); ALBUMIN 4.5 GM/DL (3.2-4.5); ALKALINE PHOSPHATASE 59 U/L (40-136); BILIRUBIN,TOTAL 0.8 MG/DL (0.1-1.0); BUN/CREATININE RATIO 15; CALCIUM 9.6 MG/DL (8.5-10.1); CARBON DIOXIDE 24 MMOL/L (21-32); CHLORIDE 105 MMOL/L (98-107); CREATININE SERUM 1.06 MG/DL (0.60-1.30); GFR ESTIMATED > 60; GLUCOSE 139 MG/DL (70-105); MAGNESIUM 2.2 MG/DL (1.6-2.4); POTASSIUM 4.1 MMOL/L (3.6-5.0); SODIUM 140 MMOL/L (135-145); TOTAL PROTEIN 7.2 GM/DL (6.4-8.2)
--- NOTE | 2019-10-24 05:47 | Diagnostic Imaging Report ---
CLINICAL INDICATION: Patient with chest pain. EXAM: Portable chest x-ray upright view. Comparisons: Portable chest x-ray dated 05/06/2010. FINDINGS: Lungs/pleura: Lungs are clear. There is no pneumothorax. There is no pleural effusion. Mediastinum: Unremarkable. Pulmonary vasculature: Unremarkable. Heart: Unremarkable. Bones/extrathoracic soft tissue: Unremarkable. IMPRESSION: There is no radiographic evidence of acute cardiopulmonary process. Dictated by: Dictated on workstation # [id number]
[2019-10-24 06:06] VITALS: BP 130/82
== END 2019-10-24 06:06 | disposition home or self-care (01) ==
LOC: EDUNIT# 04:37 → ER 04:39
DX: R07.2 Precordial pain (principal); R11.2 Nausea with vomiting, unspecified; R19.7 Diarrhea, unspecified; E78.00 Pure hypercholesterolemia, unspecified; F41.9 Anxiety disorder, unspecified; F43.10 Post-traumatic stress disorder, unspecified; F32.9 Major depressive disorder, single episode, unspecified; Z87.891 Personal history of nicotine dependence; Z88.5 Allergy status to narcotic agent
CPT/HCPCS: 36415; 71045; 80053; 83735; 83874; 84484; 85025; 85610; 85730; 87804; 93005; 93041

== ENCOUNTER 2020-06-18 04:14 | Emergency (ER) | payer SELFPAY ==
[~2020-06-18] VITALS: Ht 175 cm; Wt 112.0 kg
[~2020-06-18 04:14] MED LIST changes: -TRAZ-190 PO; +TRAZ-227 PO
[2020-06-18] MEDS ORDERED: KETOROLAC 30 MG/ML VIAL IM ONE (06:15)
[2020-06-18] MEDS ORDERED: PRD20T PO (06:19)
[2020-06-18] MEDS ORDERED: ACHD5005 PO (06:19)
--- NOTE | 2020-06-18 06:19 | ED Back Pain ---
General Chief Complaint: Back Problems Stated Complaint: RT BACK & LEG PAIN-FALL Nursing Triage Note: Pt here after falling off a couple rungs of a ladder on Wednesday; states his back started hurting today. Reports he has chronic back problems. Nursing Sepsis Screen: No Definite Risk Source of Information: Patient Exam Limitations: No Limitations History of Present Illness Date Seen by Provider: Jun 18, 2020 Time Seen by Provider: 04:25 Initial Comments This 49-year-old gentleman presents to the emergency room a couple days after falling off the second rung of a ladder area and he fell backward and struck his back on concrete. Since then he has been having fairly intense back pain not responsive to [id number] medications. He describes a little bit of pain running down his right leg. He does have history of chronic back pain. He denies any bowel or bladder dysfunction, groin numbness, or leg weakness. Allergies and Home Medications Allergies Coded Allergies: codeine (Verified Allergy, Severe, ANAPHYLAXIS, 07/31/19) Home Medications Acetaminophen 500 Mg Tablet, 1,000 MG PO Q8H PRN for PAIN-MILD (1-4), (Reported) Atorvastatin Calcium 20 Mg Tablet, 20 MG PO DAILY, (Reported) Brexpiprazole 1 Mg Tablet, 1 MG PO DAILY, (Reported) Hydrocodone/Acetaminophen 1 Each Tablet, 1 EACH PO Q4H PRN for PAIN-BREAKTHROUGH Prescribed by: TOMMIE ROMERO on 06/18/20 06 Hydroxyzine Pamoate 50 Mg Capsule, 50 MG PO BID PRN for ANXIETY, (Reported) Ibuprofen 200 Mg Tablet, 400 MG PO Q6H PRN for PAIN-MILD (1-4), (Reported) Metoprolol Succinate 25 Mg Tab.er.24h, 25 MG PO DAILY, (Reported) Paroxetine HCl 30 Mg Tablet, 30 MG PO DAILY, (Reported) Prednisone 20 Mg Tab, 40 MG PO DAILY Prescribed by: TOMMIE ROMERO on 06/18/20 06 Trazodone HCl 100 Mg Tablet, 100 MG PO DAILY PRN for INSOMNIA, (Reported) Patient Home Medication List Home Medication List Reviewed: Yes Review of Systems Constitutional: no symptoms reported EENTM: no symptoms reported Respiratory: no symptoms reported Cardiovascular: no symptoms reported Gastrointestinal: no symptoms reported Genitourinary: no symptoms reported Musculoskeletal: see HPI Skin: no symptoms reported Psychiatric/Neurological: See HPI Past Vlsfsjk-Bappji-Asupps Hx Past Med/Social Hx: Reviewed Nursing Past Med/Soc Hx Patient Social History Alcohol Use: Occasionally Uses Number of Drinks Today: AA Alcohol Beverage of Choice: Beer Recreational Drug Use: No Smoking Status: Current Everyday Smoker Type Used: Cigarettes Former Smoker, Quit: Sep 07, 2019 2nd Hand Smoke Exposure: Yes Recent Foreign Travel: No Contact w/Someone Who Travel: No Recent Infectious Disease Expo: No Recent Hopitalizations: Yes Physical Abuse: No Sexual Abuse: No Mistreated: No Fear: No Immunizations Up To Date Tetanus Booster (TDap): Less than 5yrs PED Vaccines UTD: Yes Date of Pneumonia Vaccine: Jun 12, 2019 Date of Influenza Vaccine: Jun 12, 2019 Seasonal Allergies Seasonal Allergies: Yes (MILD) Past Medical History Surgeries: Yes (R KNEE X2, COLONSCOPY, HEART CATH) Gallbladder, Orthopedic, Tonsillectomy, Vasectomy Respiratory: Yes Sleep Apnea Currently Using CPAP: Yes Cardiac: Yes High Cholesterol Neurological: No Reproductive Disorders: No Sexually Transmitted Disease: No HIV/AIDS: No Genitourinary: No Gastrointestinal: No Musculoskeletal: Yes Arthritis Endocrine: No HEENT: No (GLASSES) Loss of Vision: Denies Hearing Impairment: Denies Cancer: No Psychosocial: Yes Anxiety, PTSD, Depression Integumentary: No Blood Disorders: No Adverse Reaction/Blood Tranf: No (N/A) Physical Exam Vital Signs Vital Signs - First Documented 06/18/20 04:27 Temp 36.7 Pulse 86 Resp 18 B/P (MAP) 174/86 (115) Pulse Ox 98 O2 Delivery Room Air Capillary Refill : Less Than 3 Seconds Height, Weight, BMI Height: 5'9" Weight: 201lbs. 12.8oz. 91.216527et; 36.00 BMI Method:Stated General Appearance: WD/WN, Mild Distress HEENT: PERRL/EOMI, Normal ENT Inspection Neck: Normal Inspection Cardiovascular: Regular Rate, Rhythm, No Edema, No Murmur Respiratory: Lungs Clear, Normal Breath Sounds, No Accessory Muscle Use Gastrointestinal: Non Tender, Soft Back: Vertebral Tenderness (lumbar spine), Other (right lumbar paraspinous muscle tenderness) Extremity: Normal Inspection, No Pedal Edema Neurologic/Psychiatric: Alert, Oriented x3, No Motor/Sensory Deficits, Normal Mood/Affect, surg rn II-XII Norm as Tested Skin: Normal Color, Warm/Dry Progress/Results/Core Measures Results/Orders My Orders Orders - TOMMIE SPANGLER MD Ct Lumbar Spine Wo (06/18/20 04:33) Ketorolac Injection (Toradol Injection) (06/18/20 06:15) Medications Given in ED Current Medications Medications Dose Ordered Sig/Ty Route Start Time Stop Time Status Last Admin Dose Admin Ketorolac Tromethamine 30 mg ONCE ONCE IM 06/18/20 06:15 06/18/20 06:16 DC 06/18/20 06:28 30 MG Vital Signs/I&O 06/18/20 06/18/20 04:27 06:44 Temp 36.7 36.7 Pulse 86 70 Resp 18 18 B/P (MAP) 174/86 (115) 164/90 (115) Pulse Ox 98 99 O2 Delivery Room Air Room Air Blood Pressure Mean: 115 Progress Progress Note : Progress Note CT of the lumbar spine was obtained due to direct trauma and tenderness over the lumbar spine. No acute fractures were identified. Patient was treated with Toradol and prescriptions were provided. Patient has a follow-up appointment with Ben Cain next Wednesday and we will address his pain if it is not resolved. Diagnostic Imaging Diagonstic Imaging: CT Plain Films/CT/US/NM/MRI: other (lumbar spine) Comments CT of the lumbar spine was viewed by me and [employer] report reviewed. No acute injuries were identified. Departure Impression Primary Impression: Fall from ladder Qualified Codes: W11.XXXA - Fall on and from ladder, initial encounter Additional Impression: Low back pain Qualified Codes: M54.41 - Lumbago with sciatica, right side Disposition: 01 HOME, SELF-CARE Condition: Improved Departure-Patient Inst. Decision time for Depature: 06:15 Referrals: HERMINIA BORJA MD (PCP) Primary Care Physician RADHA CAIN (Family) Primary Care Physician Patient Instructions: Low Back Pain (DC) Add. Discharge Instructions: Avoid heavy lifting and bending until your symptoms have completely resolved. For primary pain control use ibuprofen up to 600 mg every 6 hours as needed. Add hydrocodone as prescribed for breakthrough pain. You may continue using cyclobenzaprine as previously prescribed. Use of prednisone as prescribed should help reduce inflammation and expedite healing. Gentle heat may help your muscles relax and reduce pain. Focus on weight loss and core body strengthening to prevent future problems with your back. Return to the emergency room if you have worsening of symptoms that include groin numbness, weakness of the legs, or problems controlling bowel or bladder. Keep your appointment with your primary care provider next week. All discharge instructions reviewed with patient and/or family. Voiced understanding. Scripts Prednisone (Prednisone) 20 Mg Tab 40 MG PO DAILY, #8 TAB 0 Refills Prov: TOMMIE SPANGLER MD 06/18/20 Hydrocodone/Acetaminophen (Hydrocodone-Acetamin 5-325 mg) 1 Each Tablet 1 EACH PO Q4H PRN for PAIN-BREAKTHROUGH, #14 TAB Prov: TOMMIE SPANGLER MD 06/18/20 Copy Copies To 1: EDILMA MUNSON JOSHUA T MD Jun 18, 2020 06:19
[2020-06-18 06:44] VITALS: BP 164/90
--- NOTE | 2020-06-18 07:23 | Diagnostic Imaging Report ---
PROCEDURE: CT lumbar spine without contrast. TECHNIQUE: Multiple contiguous axial images were obtained through the lumbar spine without the use of intravenous contrast. Sagittal and coronal reformations were then performed. Auto Exposure Controls were utilized during the CT exam to meet ALARA standards for radiation dose reduction. INDICATION: Fall 3 days ago. Low back pain. COMPARISON: 12/06/2011. FINDINGS: No acute fracture or dislocation is seen in the lumbar spine. There is grade 1 retrolisthesis of L3 on L4 and L4 on L5. The vertebral body heights are maintained. No focal osseous lesions are seen. Multilevel degenerative changes are seen in the lumbar spine with disc osteophyte complexes and facet hypertrophy. These are most prominent at L5-S1. There is lumbarization of the S1 vertebral body with rudimentary disc at S1-S2. No high density material seen within the spinal canal. No evidence of acute spinal canal stenosis. The soft tissues of the lumbar spine are unremarkable. A nonobstructing calculus is seen in the mid right kidney measuring 5 mm. IMPRESSION: 1. No acute fracture or dislocation in the lumbar spine. 2. Multilevel degenerative changes, greatest at L5-S1. 3. Nonobstructive calculus in the right kidney measuring 5 mm. Agree with overnight report. Dictated by: Dictated on workstation # [id number]
== END 2020-06-18 06:44 | disposition home or self-care (01) ==
LOC: EDUNIT# 04:14 → ER 04:19
DX: M54.5 Low back pain (principal); F41.9 Anxiety disorder, unspecified; F32.9 Major depressive disorder, single episode, unspecified; E78.00 Pure hypercholesterolemia, unspecified; F17.210 Nicotine dependence, cigarettes, uncomplicated; Z88.5 Allergy status to narcotic agent; Z79.52 Long term (current) use of systemic steroids
CPT/HCPCS: 72131

== ENCOUNTER 2022-08-25 21:24 | Emergency (ER) | payer OTHER ==
[~2022-08-25] VITALS: Ht 165.1 cm; Wt 88.5 kg
[~2022-08-25 21:24] MED LIST changes: +PRD20T PO
[2022-08-25] MEDS ORDERED: fentaNYL INJ 100 MCG/2 ML AMP IVP STA (21:40)
[2022-08-25] MEDS ORDERED: ONDANSETRON 4 MG/2 ML (SDV) Z0FRAN IVP ONE (21:45)
[2022-08-25] MEDS ORDERED: NS IV 1000 ML 1,000 ML IV SCH (21:45)
--- NOTE | 2022-08-25 21:55 | ED Abdominal Pain ---
General Chief Complaint: Abdominal/GI Problems Stated Complaint: ABD PAIN Nursing Triage Note: PT AMB TO RM 6 W C/O RLQ PAIN, NAUSEA, AND DIARREHA X1 WK. PT A&OX4. Source of Information: Patient Exam Limitations: No Limitations (JW RIZO APRN) History of Present Illness Date Seen by Provider: Aug 25, 2022 Time Seen by Provider: 21:40 Initial Comments 52-yo male presents via private vehicle with c/o RLQ abdominal pain. Pt reports the pain started 1 week ago at his umbilicus and the pain moved to his RLQ. Describes the pain as a constant dull ache with intermittent sharp pains. Pt reports n/v/d. Pt reports he also recently restarted his Metformin and states Metformin has caused diarrhea in the past, but not abdominal pain. Pt reports 3- 4 episodes of loose stool every day for the last week. Pt denies fevers, but reports chills. Denies CP/SOA. 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 Pt has had a cholecystectomy. Pt has some RUQ tenderness, but states he has had this tenderness since his cholecystectomy. Current medications include Ramelteon, Aripiprazole, Lisinopril, Metoprolol, Venlafaxine, Metformin, Farxiga, Ozempic, Atorvastatin, and Ambien and Vistaril as needed. Timing/Duration: 1 Week Severity/Quality: Moderate, Dull, Sharp Location: RLQ Radiation: No Radiation Associated Symptoms: Fever/Chills, Nausea/Vomiting; No Shortness of Air (JW RIZO APRN) Allergies and Home Medications Allergies Coded Allergies: codeine (Verified Allergy, Severe, ANAPHYLAXIS, 07/31/19) Patient Home Medication List Home Medication List Reviewed: Yes (JW RIZO APRN) Acetaminophen (Tylenol Extra Strength) 500 Mg Tablet, 1,000 MG PO Q8H PRN for PAIN-MILD (1-4), (Reported) Entered as Reported by: AIDEE GUTIERREZ on 10/13/19741 Atorvastatin Calcium (Atorvastatin Calcium) 20 Mg Tablet, 20 MG PO DAILY, (Reported) Entered as Reported by: AIDEE GUTIERREZ on 10/13/19741 Brexpiprazole (Rexulti) 1 Mg Tablet, 1 MG PO DAILY, (Reported) Entered as Reported by: PRASAD PECK on 07/24/19 1146 Hydrocodone/Acetaminophen (Hydrocodone-Acetamin 5-325 mg) 1 Each Tablet, 1 EACH PO Q4H PRN for PAIN-BREAKTHROUGH Prescribed by: TOMMIE ROMERO on 06/18/20 0620 Hydroxyzine Pamoate (Hydroxyzine Pamoate) 50 Mg Capsule, 50 MG PO BID PRN for ANXIETY, (Reported) Entered as Reported by: AIDEE GUTIERREZ on 10/13/19 07 Ibuprofen (Ibuprofen) 200 Mg Tablet, 400 MG PO Q6H PRN for PAIN-MILD (1-4), (Reported) Entered as Reported by: AIDEE GUTIERREZ on 10/13/19 07 Metoprolol Succinate (Metoprolol Succinate) 25 Mg Tab.er.24h, 25 MG PO DAILY, (Reported) Entered as Reported by: AIDEE GUTIERREZ on 10/13/19 07 Paroxetine HCl (Paxil) 30 Mg Tablet, 30 MG PO DAILY, (Reported) Entered as Reported by: PRASAD PECK on 07/24/19 114 Prednisone (Prednisone) 20 Mg Tab, 40 MG PO DAILY Prescribed by: TOMMIE ROMERO on 06/18/20 06 Trazodone HCl (Trazodone HCl) 100 Mg Tablet, 100 MG PO DAILY PRN for INSOMNIA, (Reported) Entered as Reported by: AIDEE GUTIERREZ on 10/13/19 0742 Review of Systems Review of Systems Constitutional: chills Respiratory: No Symptoms Reported Cardiovascular: No Symptoms Reported Gastrointestinal: Abdominal Pain, Diarrhea, Nausea, Vomiting Genitourinary: No Symptoms Reported (JW RIZO APRN) Past Oylruyo-Jveqta-Mybcfs Hx Patient Social History Tobacco Use?: Yes Smoking Status: Current Everyday Smoker Use of E-Cig and/or Vaping dev: No Substance use?: No Alcohol Use?: No (JW RIZO APRN) Immunizations Up To Date Tetanus Booster (TDap): Less than 5yrs PED Vaccines UTD: Yes Influenza Vaccine Up-to-Date: Yes; Up-to-Date First/Initial COVID19 Vaccinat: 2020 Second COVID19 Vaccination Josias: 2021 Third COVID19 Vaccination Date: 2021 COVID19 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 (JW RIZO APRN) Seasonal Allergies Seasonal Allergies: Yes (MILD) (JW RIZO APRN) Past Medical History Surgeries: Yes (R KNEE X2, COLONSCOPY, HEART CATH) Gallbladder, Orthopedic, Tonsillectomy, Vasectomy Respiratory: Yes Sleep Apnea Currently Using CPAP: Yes Cardiac: Yes High Cholesterol Neurological: No Reproductive Disorders: No Sexually Transmitted Disease: No HIV/AIDS: No Genitourinary: No Gastrointestinal: No Musculoskeletal: Yes Arthritis Endocrine: No HEENT: No (GLASSES) Loss of Vision: Denies Hearing Impairment: Denies Cancer: No Psychosocial: Yes Anxiety, PTSD, Depression Integumentary: No Blood Disorders: No Adverse Reaction/Blood Tranf: No (N/A) (JW RIZO APRN) Physical Exam Vital Signs Vital Signs - First Documented 08/25/22 21:29 Temp 36.1 Pulse 92 Resp 20 B/P (MAP) 128/82 (97) Pulse Ox 94 O2 Delivery Room Air (LUDWIN,KAREN K DO) Vital Signs Capillary Refill : Less Than 3 Seconds (JW RIZO APRN) Height/Weight/BMI Height: 5'9" Weight: 201lbs. 12.8oz. 91.137057qh; 32.00 BMI Method:Stated General Appearance: WD/WN, mild distress Neck: supple, normal inspection Respiratory: chest non-tender, lungs clear, normal breath sounds, no respiratory distress, no accessory muscle use Cardiovascular: regular rate, rhythm, no edema, no gallop, no JVD, no murmur Gastrointestinal: soft, abnormal bowel sounds (hyperactive), rebound (RLQ), tenderness (RLQ, RUQ) Extremities: normal range of motion, normal inspection Back: normal inspection Neurologic/Psychiatric: alert, normal mood/affect, oriented x 3 Skin: normal color, warm/dry (JW RIZO APRN) Progress/Results/Core Measures Results/Orders Lab Results Laboratory Tests Test 08/25/22 20:21 08/25/22 21:52 Range/Units Urine Color YELLOW Urine Clarity CLEAR Urine pH 8.0 5-9 Urine Specific [place] 1.015 L 1.016-1.022 Urine Protein NEGATIVE NEGATIVE Urine Glucose (UA) 3+ H NEGATIVE Urine Ketones NEGATIVE NEGATIVE Urine Nitrite NEGATIVE NEGATIVE Urine Bilirubin NEGATIVE NEGATIVE Urine Urobilinogen 1.0 < = 1.0 MG/DL Urine Leukocyte Esterase NEGATIVE NEGATIVE Urine RBC (Auto) NEGATIVE NEGATIVE Urine RBC NONE /HPF Urine WBC NONE /HPF Urine Squamous Epithelial Cells NONE /HPF Urine Renal Epithelial Cells NONE /HPF Urine Crystals NONE /LPF Urine Bacteria NEGATIVE /HPF Urine Casts NONE /LPF Urine Mucus NEGATIVE /LPF Urine Culture Indicated NO White Blood Count 11.4 H 4.3-11.0 10^3/uL Red Blood Count 5.69 H 4.30-5.52 10^6/uL Hemoglobin 17.0 13.3-17.7 g/dL Hematocrit 50 40-54 % Mean Corpuscular Volume 87 80-99 fL Mean Corpuscular Hemoglobin 30 25-34 pg Mean Corpuscular Hemoglobin Concent 34 32-36 g/dL Red Cell Distribution Width 13.1 10.0-14.5 % Platelet Count 286 130-400 10^3/uL Mean Platelet Volume 10.6 9.0-12.2 fL Immature Granulocyte % (Auto) 0 % Neutrophils (%) (Auto) 73 42-75 % Lymphocytes (%) (Auto) 16 12-44 % Monocytes (%) (Auto) 7 0-12 % Eosinophils (%) (Auto) 4 0-10 % Basophils (%) (Auto) 1 0-10 % Neutrophils # (Auto) 8.3 H 1.8-7.8 10^3/uL Lymphocytes # (Auto) 1.8 1.0-4.0 10^3/uL Monocytes # (Auto) 0.8 0.0-1.0 10^3/uL Eosinophils # (Auto) 0.5 H 0.0-0.3 10^3/uL Basophils # (Auto) 0.1 0.0-0.1 10^3/uL Immature Granulocyte # (Auto) 0.0 0.0-0.1 10^3/uL Sodium Level 141 135-145 MMOL/L Potassium Level 4.5 3.6-5.0 MMOL/L Chloride Level 105 98-107 MMOL/L Carbon Dioxide Level 19 L 21-32 MMOL/L Anion Gap 17 H 5-14 MMOL/L Blood Urea Nitrogen 12 7-18 MG/DL Creatinine 0.92 0.60-1.30 MG/DL Estimat Glomerular Filtration Rate 99 BUN/Creatinine Ratio 13 Glucose Level 147 H 70-105 MG/DL Calcium Level 9.4 8.5-10.1 MG/DL Corrected Calcium 9.2 8.5-10.1 MG/DL Total Bilirubin 0.5 0.1-1.0 MG/DL Aspartate Amino Transf (AST/SGOT) 35 H 5-34 U/L Alanine Aminotransferase (ALT/SGPT) 55 0-55 U/L Alkaline Phosphatase 70 40-136 U/L C-Reactive Protein High Sensitivity 0.08 0.00-0.50 MG/DL Total Protein 7.3 6.4-8.2 GM/DL Albumin 4.3 3.2-4.5 GM/DL (ED MASCORROA Santiago FERGUSON) Medications Given in ED Current Medications Medications Dose Ordered Sig/Ty Route Start Time Stop Time Status Last Admin Dose Admin Iohexol 100 ml ONCE ONCE IV 08/25/22 22:00 08/25/22 22:01 DC 08/25/22 21:57 80 ML Ondansetron HCl 4 mg ONCE ONCE IVP 08/25/22 21:45 08/25/22 21:46 DC 08/25/22 22:07 4 MG Sodium Chloride 10 ml NEEDED PRN IV 08/25/22 22:00 08/25/22 23:00 DC 08/25/22 21:57 10 ML Sodium Chloride 100 ml ONCE ONCE IV 08/25/22 22:00 08/25/22 22:01 DC 08/25/22 21:57 80 ML (LUDWINEDA K DO) Vital Signs/I&O 08/25/22 08/25/22 21:29 22:59 Temp 36.1 Pulse 92 78 Resp 20 20 B/P (MAP) 128/82 (97) 128/68 Pulse Ox 94 94 O2 Delivery Room Air Room Air (LUDWINEDA K DO) Blood Pressure Mean: 97 Progress Progress Note #1: Time: 22:01 Progress Note Obtaining labs, UA, and CT for moderate RLQ abdominal tenderness with rebound tenderness Progress Note #2: Time: 22:30 Progress Note Pt reassessed at this time. Pt reports his pain has improved from a 4-5 down to a 1/10. Progress Note #3: Time: 22:[address] report received from [facility]. CT report reviewed: hepatic stenosis, stone in inferior pole of right kidney, normal appendix, rest of report insignificant. (JW RIZO APRN) Departure Impression Primary Impression: Abdominal pain Qualified Codes: R10.31 - Right lower quadrant pain Additional Impression: Diarrhea Qualified Codes: R19.7 - Diarrhea, unspecified Disposition: 01 HOME, SELF-CARE Condition: Stable Departure-Patient Inst. Decision time for Depature: 22:41 (JW RIZO APRN) Referrals: [facility] [place]LOCAL PHYSICIAN (PCP) Primary Care Physician Patient Instructions: Diarrhea in Adolescents and Adults, Gastritis (DC) Add. Discharge Instructions: Follow up with Dr. Milton. Your labs and CT were reassuring for no emergent condition. This pain, diarrhea, and vomiting could be due to gastroenteritis. It could also be from your Metformin. Since you had a CT with contrast, you need to hold your Metformin for 3 days. Take the Zofran as needed for nausea/vomiting. Zofran can cause constipation. All discharge instructions reviewed with patient and/or family. Voiced understanding. ATTENDING PHYSICIAN NOTE: I WAS PHYSICALLY PRESENT ER PHYSICIAN, BUT I WAS NOT INVOLVED IN ANY DECISION MAKING OR ANY CARE OF THIS PATIENT, AND I AM NOT COLLABORATING PHYSICIAN. (KAREN MASCORRO DO) Copy Copies To 1: LILIAN MILTON MD, BRITTANY R APRN Aug 25, 2022 21:55 KAREN MASCORRO DO Aug 26, 2022 06:34
[2022-08-25 21:58] LABS: BASOPHILS # (AUTO) 0.1 10^3/uL (0.0-0.1); BASOPHILS % (AUTO) 1 % (0-10); EOSINOPHILS # (AUTO) 0.5 10^3/uL (0.0-0.3); EOSINOPHILS % (AUTO) 4 % (0-10); HEMATOCRIT 50 % (40-54); LYMPHOCYTES # (AUTO) 1.8 10^3/uL (1.0-4.0); LYMPHOCYTES % (AUTO) 16 % (12-44); MEAN CORPUSCULAR HEMOGLOBIN 30 pg (25-34); MEAN CORPUSCULAR HGB CONC 34 g/dL (32-36); MEAN CORPUSCULAR VOLUME 87 fL (80-99); MEAN PLATELET VOLUME 10.6 fL (9.0-12.2); MONOCYTES # (AUTO) 0.8 10^3/uL (0.0-1.0); MONOCYTES % (AUTO) 7 % (0-12); NEUTROPHILS # (AUTO) 8.3 10^3/uL (1.8-7.8); NEUTROPHILS % (AUTO) 73 % (42-75); PLATELET COUNT 286 10^3/uL (130-400); WHITE BLOOD COUNT 11.4 10^3/uL (4.3-11.0)
[2022-08-25] MEDS ORDERED: IOHEXOL 350 MG/ML 100 ML (OMNIPAQUE 350) VIAL IV ONE (22:00)
[2022-08-25] MEDS ORDERED: CATHETER FLUSH 10 ML SYR IV PRN (22:00)
[2022-08-25] MEDS ORDERED: NS 100 ML (IVPB) BAG IV ONE (22:00)
[2022-08-25 22:12] LABS: ALBUMIN 4.3 GM/DL (3.2-4.5); POTASSIUM 4.5 MMOL/L (3.6-5.0)
[2022-08-25 22:13] LABS: CALCIUM 9.4 MG/DL (8.5-10.1)
[2022-08-25 22:14] LABS: TOTAL PROTEIN 7.3 GM/DL (6.4-8.2)
[2022-08-25 22:16] LABS: BILIRUBIN,TOTAL 0.5 MG/DL (0.1-1.0)
[2022-08-25 22:18] LABS: CREATININE SERUM 0.92 MG/DL (0.60-1.30)
[2022-08-25 22:29] LABS: BILIRUBIN,URINE NEGATIVE (NEGATIVE); CLARITY,URINE CLEAR; COLOR,URINE YELLOW; GLUCOSE, URINE (UA) 3+ (NEGATIVE); KETONES,URINE NEGATIVE (NEGATIVE); LEUKOCYTE ESTERASE ,URINE NEGATIVE (NEGATIVE); NITRITE,URINE NEGATIVE (NEGATIVE); PROTEIN,URINE NEGATIVE (NEGATIVE)
[2022-08-25 22:35] LABS: BACTERIA,URINE NEGATIVE /HPF
[2022-08-25] MEDS ORDERED: RX-ONDANSETRON 4 MG ODT (ZOFRAN) PPK #4 PO STA (22:40)
[2022-08-25 22:59] VITALS: BP 128/68
--- NOTE | 2022-08-26 08:43 | Diagnostic Imaging Report ---
PROCEDURE: CT abdomen and pelvis with contrast, rule out appendicitis. TECHNIQUE: Multiple contiguous axial images were obtained through the abdomen and pelvis after the administration of intravenous contrast. All CT scans use one or more of the following dose optimizing techniques: automated exposure control, MA and/or KvP adjustment based on patient size and exam type or iterative reconstruction. INDICATION: Right lower quadrant abdominal pain. Nausea. Diarrhea. COMPARISON: None FINDINGS: Normal appendix is identified. Small bowel loops are nondistended. Punctate nonobstructive right renal calculus is noted. No renal calculi are seen on the left. No ureteral calculi identified on either side. Additionally, there is no hydroureteronephrosis or other evidence of obstruction. Benign-appearing left renal cysts are also noted. Liver appears diffusely hypodense on this postcontrast exam. Otherwise, the adrenal glands, spleen, pancreas, and liver have a normal CT appearance. There is no loculated fluid collection, free fluid or free air. No abnormal adenopathy is seen. Osseous structures show no acute abnormalities. CT pelvis: Urinary bladder is unopacified. No calculi are seen within the urinary bladder. There is no loculated fluid collection, free fluid or free air. No abnormal lymph nodes are seen. Osseous structures show no acute abnormalities. IMPRESSION: 1. Nonobstructive right renal calculus. 2. Probable hepatic steatosis. Dictated by: Dictated on workstation # [id number]
== END 2022-08-25 22:59 | disposition home or self-care (01) ==
LOC: EDUNIT# 21:24 → ER 21:25
DX: R10.31 Right lower quadrant pain (principal); R10.11 Right upper quadrant pain; R19.7 Diarrhea, unspecified; R11.2 Nausea with vomiting, unspecified; N20.0 Calculus of kidney; F17.200 Nicotine dependence, unspecified, uncomplicated; Z90.49 Acquired absence of other specified parts of digestive tract
CPT/HCPCS: 36415; 74177; 80053; 81000; 85025; 86141